=== PATIENT | male | born 1960 | race Caucasian/White ===

== ENCOUNTER → 2018-04-27 | Outpatient (CLI) | payer OTHER | LOC: CAT 08:02 | DX: E78.00 Pure hypercholesterolemia, unspecified (principal); Z82.49 Family history of ischemic heart disease and other diseases of the circulatory system ==

== ENCOUNTER → 2019-08-09 | Outpatient (CLI) | payer OTHER | LOC: SJCVCIMAG 09:37 | DX: I08.3 Combined rheumatic disorders of mitral, aortic and tricuspid valves (principal) ==

== ENCOUNTER → 2020-08-03 | Outpatient (CLI) | payer BC, OTHER | LOC: SJCVCIMAG 10:06 | PROVIDERS: ATTEND Internal Medicine | DX: I08.3 Combined rheumatic disorders of mitral, aortic and tricuspid valves (principal); I11.9 Hypertensive heart disease without heart failure; I77.89 Other specified disorders of arteries and arterioles ==